=== PATIENT | male | born 1995 ===

== ENCOUNTER 2016-09-06 06:08 | Day surgery (SDC) | payer OTHER ==
[2016-08-30 11:55] VITALS: BMI 36.2
[2016-09-06] MEDS ORDERED: Bacitracin Ointment 30 GM TUBE ONE (07:32)
[2016-09-06] MEDS ORDERED: Midazolam 2 MG/2 ML VIAL ONE (07:48)
[2016-09-06] MEDS ORDERED: Propofol 10 mg/ml Inj (20 ML) ONE ×3 (07:48→08:58)
[2016-09-06] MEDS: ceFAZolin IV 1 gm in Dextrose 50 ML IVPB ONE ×2 (08:11→08:45)
[2016-09-06] MEDS ORDERED: Phenylephrine 10 mg/ml Inj ONE (08:39)
[2016-09-06] MEDS ORDERED: Bupivacaine 0.5% Inj(30mL) ONE (08:44)
[2016-09-06] MEDS ORDERED: Lidocaine 1% Inj (20ml) ONE (08:44)
[2016-09-06] MEDS ORDERED: HYDROmorphone 0.5 mg/0.5 ml ISec IVP PRN (09:05)
[2016-09-06 10:58] VITALS: RESP 16; TEMP 97.2; O2SAT 100
[2016-09-06 11:21] VITALS: BP 136/81; PULSE 69
--- NOTE | 2016-09-06 11:32 | OP ---
PROCEDURE DATE: 09/06/2016 PREOPERATIVE DIAGNOSIS: Sebaceous cyst of left scrotum. POSTOPERATIVE DIAGNOSIS: Sebaceous cyst of left scrotum. PROCEDURE: Excision of sebaceous cyst of left scrotum. SURGEON: Shun Cruz MD OPERATIVE DICTATION: The patient brought to the operating room. He is placed under conscious sedati on and anesthesia by the anesthesiologist, and prepped and draped in the usual fashion. Xylocaine an d Marcaine was injected subcutaneously circumferentially around the area of the lesion, which is note d to be about a 1 cm superficial sebaceous cyst. A very fine incision was made just through the skin over the sebaceous cyst and then using blunt dissection, we were able to remove the entire sebaceous cyst including its capsule in its entirety. One or two areas of the subcutaneous were then cauteriz ed and then the skin was closed using simple interrupted sutures of 3-0 chromic. Sterile glue was th en applied over the area. The patient tolerated the procedure well. Shun Cruz MD cc: [id number] TT: 09/06/2016 11:31:36 en
== END 2016-09-06 11:13 | disposition home or self-care (01) ==
LOC: C.SDS 06:08
PROVIDERS: ATTEND Urology
DX: L72.3 Sebaceous cyst (principal)